=== PATIENT | female | born 1935 | race African-American/Black ===

== ENCOUNTER 2020-09-27 15:29 | Emergency (ER) | payer OTHER, MEDICAID ==
[~2020-09-27] VITALS: Ht 167.6 cm; Wt 66.0 kg
[2020-09-27] MEDS ORDERED: PIPERACILLIN/TAZ 3.375G PREMIX 50 ML IV ONE (16:30)
[2020-09-27 17:16] LABS: HEMATOCRIT. 38.7 % (36.0-48.0); HEMOGLOBIN. 12.8 g/dL (12.0-16.0); MEAN CORPUSCULAR HEMOGLOBIN 30.4 pg (28.0-32.0); MEAN CORPUSCULAR VOLUME 92.1 fL (81.0-99.0); MEAN PLATELET VOLUME 8.7 fl (7.4-10.4); PLATELET 159 x1000/uL (130-400); RED CELL DISTRIBUTION WIDTH 15.2 % (11.6-14.6)
[2020-09-27 17:26] LABS: PROTHROMBIN TIME 11.2 sec (9.6-11.0)
[2020-09-27 17:59] LABS: PLATELET ESTIMATE NORMAL
[2020-09-27 19:24] LABS: CHLORIDE 103 mEq/L (98-107)
[2020-09-27 19:38] LABS: CLARITY URINE CLEAR (CLEAR); COLOR URINE YELLOW (YELLOW); KETONES URINE NEGATIVE (NEGATIVE); LEUKOCYTE ESTERASE URINE 2+ (NEGATIVE); NITRITE URINE NEGATIVE (NEGATIVE); OCCULT BLOOD URINE NEGATIVE (NEGATIVE); PROTEIN URINE NEGATIVE (NEGATIVE); SPECIFIC GRAVITY URINE 1.019 (1.005-1.030)
[2020-09-27] MEDS ORDERED: ACYCLOVIR INJ 500 MG in DEXT 5% WATER 100 ML IV SCH (19:45)
[2020-09-27] MEDS ORDERED: CLONIDINE 0.2MG TABLET PO ONE (22:15)
[2020-09-27 23:49] VITALS: BP 151/99
== END 2020-09-27 23:58 | disposition short-term general hospital (02) ==
LOC: ER 15:29
DX: R55 Syncope and collapse (principal); L03.211 Cellulitis of face; I11.0 Hypertensive heart disease with heart failure; I50.9 Heart failure, unspecified; E11.9 Type 2 diabetes mellitus without complications; Z88.0 Allergy status to penicillin; Z86.73 Personal history of transient ischemic attack (TIA), and cerebral infarction without residual deficits; Z98.890 Other specified postprocedural states
CPT/HCPCS: 36415; 70450; 70486; 71045; 80053; 81003; 84484; 85025; 85610; 87040; 93005; 96365; 96367; 99285; J0133; J2543; J7060